=== PATIENT | female | born 1990 | race Caucasian/White ===

== ENCOUNTER 2021-04-27 11:53 | Inpatient (IN) | payer BC ==
[~2021-04-27 11:53] MED LIST: PRENATAL VITAM1 EAC3 PO; UNISOM25 MG PO
[2021-04-29 07:09] LABS: HEMOGLOBIN 11.4 gm/dl (12.3-15.3); RED BLOOD COUNT 3.76 M/UL (4.00-5.10); WHITE BLOOD COUNT 7.1 K/UL (4.5-11.0)
[2021-04-30 06:40] LABS: HEMOGLOBIN 10.4 gm/dl (12.3-15.3)
[2021-04-30] MEDS ORDERED: IBUPROFEN600 MG PO (13:51)
[2021-04-30] MEDS ORDERED: DOCUSATE SODIU100 MG PO (13:51)
== END 2021-04-30 18:06 | disposition home or self-care (01) | DRG 807 ==
LOC: LBRF 11:53 → OB 04-29 05:32
PROVIDERS: Obstetrics & Gynecology; ADMIT Obstetrics & Gynecology
PROC: 10E0XZZ Delivery of Products of Conception, External Approach (ICD-10-PCS; principal; 2021-04-29)
PROC: 0HQ9XZZ Repair Perineum Skin, External Approach (ICD-10-PCS; 2021-04-29)
PROC: 3E033VJ Introduction of Other Hormone into Peripheral Vein, Percutaneous Approach (ICD-10-PCS; 2021-04-29)
PROC: 4A1HXCZ Monitoring of Products of Conception, Cardiac Rate, External Approach (ICD-10-PCS; 2021-04-29)
DX: O70.0 First degree perineal laceration during delivery (principal); Z37.0 Single live birth; Z3A.39 39 weeks gestation of pregnancy; Z20.822 Contact with and (suspected) exposure to COVID-19
CPT/HCPCS: 36415; 51702; 81001; 82800; 85014; 85018; 85025; 90715; J2405; J2590; J7120; U0003